=== PATIENT | male | born 1985 | race Two or more races ===

== ENCOUNTER → 2016-09-20 | Emergency (ER) | payer OTHER | END | disposition left against medical advice (07) | LOC: ER 15:45 | DX: R10.9 Unspecified abdominal pain (principal); Z53.21 Procedure and treatment not carried out due to patient leaving prior to being seen by health care provider ==

== ENCOUNTER 2016-09-21 12:45 | Emergency (ER) | payer SELFPAY ==
[~2016-09-21] VITALS: Ht 177.8 cm; Wt 86.2 kg
[2016-09-21 13:51] LABS: Basophils # (auto) 0 uL; Basophils % (auto) 0.1 % (0.0-2.0); DEFINITIVE VIEW TRANSMISSION; Eosinophils % (auto) 12.8 % (0.0-7.0); Hematocrit 46.7 % (41.0-53.0); Lymphocytes # (auto) 2.5 uL; Lymphocytes % (auto) 32.7 % (10.0-50.0); Mean Corpuscular Hemoglobin 32.1 pg (28.0-32.0); Mean Corpuscular Hgb Conc. 34.2 g/dL (32.0-36.0); Mean Corpuscular Volume 93.9 fL (80.0-100.0); Mean Platelet Volume 7.6 fL (7.4-10.4); Monocytes # (auto) 0.6 uL; Monocytes % (auto) 8.6 % (0.0-12.0); Neutrophils # (auto) 3.5 uL; Neutrophils % (auto) 45.8 % (37.0-80.0); Platelet Count (auto) 253 10^3/uL (140-450); Red Cell Distribution Width 13.8 % (11.6-16.0); White Blood Cell 7.6 10^3/uL (4.4-10.8)
[2016-09-21 14:18] LABS: Albumin 3.3 g/dL (3.4-5.0); BUN/Creatinine Ratio 6.8; Calcium 8.7 mg/dL (8.5-10.1); Potassium 3.9 mmol/L (3.5-5.1)
[2016-09-21 14:20] LABS: Bilirubin, Total 0.3 mg/dL (0.2-1.0)
[2016-09-21 16:23] VITALS: BP 125/79
[2016-09-21] MEDS ORDERED: PANTOPRAZOLE 40 MG TAB PO ONE (17:00)
== END 2016-09-21 18:16 | disposition home or self-care (01) ==
LOC: ER 12:45
DX: K29.70 Gastritis, unspecified, without bleeding (principal); Z90.49 Acquired absence of other specified parts of digestive tract
CPT/HCPCS: 36415; 74176; 80053; 83690; 85025

== ENCOUNTER 2017-01-13 11:56 | Inpatient (IN) | payer MEDICAID ==
[~2017-01-13] VITALS: Ht 175.3 cm; Wt 89.0 kg
[2017-01-13 13:09] LABS: Basophils # (auto) 0 uL; Basophils % (auto) 0.3 % (0.0-2.0); Eosinophils # (auto) 0.3 uL; Eosinophils % (auto) 2.9 % (0.0-7.0); Hematocrit 53.6 % (41.0-53.0); Hemoglobin 18.3 g/dL (13.5-17.5); Lymphocytes # (auto) 1.7 uL; Lymphocytes % (auto) 16.2 % (10.0-50.0); Mean Corpuscular Hemoglobin 32.5 pg (28.0-32.0); Mean Corpuscular Hgb Conc. 34.2 g/dL (32.0-36.0); Mean Platelet Volume 7.3 fL (6.9-10.8); Monocytes # (auto) 0.8 uL; Monocytes % (auto) 7.4 % (0.0-12.0); Neutrophils # (auto) 7.5 uL; Neutrophils % (auto) 73.2 % (37.0-80.0); Nucleated Red Blood Cells % 0.1 %; Platelet Count (auto) 254 10^3/uL (140-450); Red Cell Distribution Width 13.5 % (11.8-14.3); White Blood Cell 10.2 10^3/uL (4.4-10.8)
[2017-01-13] MEDS ORDERED: ONDANSETRON HCL 4 MG/2 ML VIAL IV ONE (13:15)
[2017-01-13] MEDS ORDERED: MORPHINE SULF INJ 2 MG/ML SYRINGE 1ML IV ONE (13:15)
[2017-01-13] MEDS ORDERED: PANTOPRAZOLE 40 MG/10 ML VIAL IV STA (13:15)
[2017-01-13] MEDS ORDERED: SODIUM CHLORIDE 0.9% 1,000 ML IVB ONE (13:15)
[2017-01-13 13:20] LABS: Albumin 3.5 g/dL (3.4-5.0); BUN/Creatinine Ratio 8.6; Calcium 8.5 mg/dL (8.5-10.1); Potassium 4.1 mmol/L (3.5-5.1)
[2017-01-13 13:23] LABS: Bilirubin, Total 0.6 mg/dL (0.2-1.0); Total Protein 7.2 g/dL (6.4-8.2)
[2017-01-13] MEDS ORDERED: cefTRIAXone 1GM/50ML D5W 50 ML IV ONE (16:45)
[2017-01-13] MEDS ORDERED: ACETAMINOPHEN 500 MG TAB PO PRN (16:45)
[2017-01-13] MEDS ORDERED: LORazepam 0.5 MG TAB PO PRN (16:45)
[2017-01-13] MEDS ORDERED: TEMAZEPAM 15 MG CAP PO PRN (16:45)
[2017-01-13] MEDS ORDERED: HYDROcodone-ACET 5/325MG TAB PO PRN (16:45)
[2017-01-13] MEDS: PROMETHAZINE HCL 25 MG/ML 1ML IV PRN ×2 (18:40→22:49)
[2017-01-13] MEDS: MORPHINE SULF INJ 2 MG/ML SYRINGE 1ML IV PRN ×2 (18:41→22:49)
[2017-01-13] MEDS: FAMOTIDINE (10MG/ML) 2ML VL IV SCH (18:41)
[2017-01-13] MEDS: SODIUM CHLORIDE 0.9% 1,000 ML IV SCH (18:42)
[2017-01-13 22:00] VITALS: BP 144/78
[2017-01-14] MEDS: SODIUM CHLORIDE 0.9% 1,000 ML IV SCH ×3 (03:11→22:44)
[2017-01-14 05:00] VITALS: BP 141/98
[2017-01-14] MEDS: FAMOTIDINE (10MG/ML) 2ML VL IV SCH (05:05)
[2017-01-14] MEDS: PROMETHAZINE HCL 25 MG/ML 1ML IV PRN ×4 (05:05→22:49)
[2017-01-14] MEDS: MORPHINE SULF INJ 2 MG/ML SYRINGE 1ML IV PRN ×4 (05:06→22:50)
[2017-01-14 06:50] LABS: Cholesterol 133 mg/dL (< 200); HDL Cholesterol 18 mg/dL (40-59); LDL Cholesterol 113 mg/dL (< 100); Triglycerides 98 mg/dL (< 150)
[2017-01-14] MEDS: cefTRIAXone 1GM/50ML D5W 50 ML IV SCH (08:18)
[2017-01-14 10:04] VITALS: BP 130/70
[2017-01-14 13:00] VITALS: BP 147/78
[2017-01-14] MEDS ORDERED: SODIUM CHLORIDE LOCK 10 ML ONE (13:55)
[2017-01-14] MEDS ORDERED: LIDOCAINE VISCOUS 2% 15ML UD ONE (13:55)
[2017-01-14] MEDS ORDERED: diphenhdrAMINE HCL 50 MG/1 ML VL ONE (13:55)
[2017-01-14 14:29] LABS: INR 1.07 (0.9-1.15); Prothrombin Time 11.7 sec (9.37-12.3)
[2017-01-14] MEDS: MIDAZOLAM HCL 5 MG/ML-1ML VIAL ONE ×2 (14:35→14:38)
[2017-01-14] MEDS: fentaNYL CITRATE 100 MCG/2 ML VL ONE ×2 (14:35→14:38)
[2017-01-14] MEDS ORDERED: IOHEXOL 300 MG/ML 100ML BOTTLE IJ ONE (14:57)
[2017-01-14 17:00] VITALS: BP 125/66
[2017-01-14 20:00] VITALS: BP 137/79
[2017-01-14 22:00] VITALS: BP 137/79
[2017-01-14] MEDS: PANTOPRAZOLE 40 MG TAB PO SCH (22:12)
[2017-01-15] MEDS: MORPHINE SULF INJ 2 MG/ML SYRINGE 1ML IV PRN ×3 (02:50→11:06)
[2017-01-15] MEDS: PROMETHAZINE HCL 25 MG/ML 1ML IV PRN ×2 (02:50→06:47)
[2017-01-15 05:25] VITALS: BP 137/69
[2017-01-15 07:36] VITALS: BP 135/67
[2017-01-15] MEDS: cefTRIAXone 1GM/50ML D5W 50 ML IV SCH (08:24)
[2017-01-15 08:32] LABS: Urine Bilirubin Negative (Negative); Urine Blood Negative /uL (Negative); Urine Color Yellow (Yellow); Urine Glucose Normal (Normal); Urine Ketone TRACE (Negative); Urine Nitrite Negative (Negative); Urine RBC <1 /hpf (0 - 3); Urine Urobilinogen Normal (Negative); Urine pH 7.5 (5.0-8.0)
[2017-01-15] MEDS: PANTOPRAZOLE 40 MG TAB PO SCH (11:05)
[2017-01-15 11:53] VITALS: BP 138/73
[2017-01-15] MEDS: SODIUM CHLORIDE 0.9% 1,000 ML IV SCH (12:50)
[2017-01-15 13:46] VITALS: BP 138/73
== END 2017-01-15 14:20 | disposition home or self-care (01) | DRG 241 ==
LOC: ER 11:56 → OVERFLOW 11:57 → CENTRAL 17:56
PROVIDERS: ADMIT Internal Medicine; ATTEND Internal Medicine
PROC: 0DJ08ZZ Inspection of Upper Intestinal Tract, Via Natural or Artificial Opening Endoscopic (ICD-10-PCS; principal; 2017-01-14 14:33)
DX: K29.70 Gastritis, unspecified, without bleeding (principal); K20.9 Esophagitis, unspecified; F41.9 Anxiety disorder, unspecified; K29.80 Duodenitis without bleeding; F17.200 Nicotine dependence, unspecified, uncomplicated; K82.4 Cholesterolosis of gallbladder; G47.00 Insomnia, unspecified; Z90.49 Acquired absence of other specified parts of digestive tract
CPT/HCPCS: 36415; 43235; 71010; 74177; 76705; 78226; 80053; 80061; 80307; 81001; 82150; 83690; 85025; 85610; 85652; 86141; 94761; 96361; 96374; 96375; C9113; J0696; J2250; J2405; J3490

== ENCOUNTER → 2017-02-14 | Outpatient (CLI) | payer MEDICAID | END | disposition home or self-care (01) | LOC: LAB 14:57 | PROVIDERS: ATTEND Surgery | DX: R35.0 Frequency of micturition (principal) ==

== ENCOUNTER 2017-10-25 17:58 | Inpatient (IN) | payer MEDICAID ==
[~2017-10-25] VITALS: Ht 177.8 cm; Wt 92.3 kg
[2017-10-25] MEDS ORDERED: SODIUM CHLORIDE 0.9% 500 ML IVB ONE (18:33)
[2017-10-25] MEDS ORDERED: PANTOPRAZOLE 40 MG/10 ML VIAL IV STA (18:33)
[2017-10-25] MEDS ORDERED: ONDANSETRON HCL 4 MG/2 ML VIAL IV ONE (18:45)
[2017-10-25] MEDS ORDERED: MORPHINE SULFATE 4 MG/ML SYR/VIAL IV ONE (18:45)
[2017-10-25 19:03] LABS: Basophils # (auto) 0 uL; Basophils % (auto) 0.1 % (0.0-2.0); Eosinophils # (auto) 0.1 uL; Eosinophils % (auto) 1.1 % (0.0-7.0); Lymphocytes # (auto) 2.1 uL; Lymphocytes % (auto) 21.7 % (10.0-50.0); Mean Corpuscular Hemoglobin 33.6 pg (28.0-32.0); Mean Corpuscular Hgb Conc. 34.9 g/dL (32.0-36.0); Mean Corpuscular Volume 96.4 fL (80.0-100.0); Monocytes # (auto) 0.9 uL; Monocytes % (auto) 9.2 % (0.0-12.0); Neutrophils # (auto) 6.5 uL; Neutrophils % (auto) 67.9 % (37.0-80.0); Nucleated Red Blood Cells % 0.1 %; Platelet Count (auto) 243 10^3/uL (140-450); Red Blood Cells 5.96 10^6/uL (4.5-5.90); Red Cell Distribution Width 12.7 % (11.8-14.3); White Blood Cell 9.5 10^3/uL (4.4-10.8)
[2017-10-25 19:04] LABS: Hematocrit 57.4 % (41.0-53.0)
[2017-10-25 19:23] LABS: Albumin 3.8 g/dL (3.4-5.0); BUN/Creatinine Ratio 7.8; Bilirubin, Total 0.5 mg/dL (0.2-1.0); Potassium 4.1 mmol/L (3.5-5.1); Total Protein 7.8 g/dL (6.4-8.2)
[2017-10-25 22:22] LABS: Urine Bacteria NONE SEEN /hpf (None Seen); Urine Blood Negative /uL (Negative); Urine Mucus FEW (None Seen); Urine Specific Gravity 1.023 (1.001-1.035); Urine WBC <1 /hpf (0 - 3)
[2017-10-25] MEDS ORDERED: ACETAMINOPHEN 500 MG TAB PO PRN (23:00)
[2017-10-25] MEDS: SODIUM CHLORIDE 0.9% 1,000 ML IV SCH (23:00)
[2017-10-25] MEDS ORDERED: HYDROcodone-ACET 5/325MG TAB PO PRN (23:00)
[2017-10-26 01:10] VITALS: BP 121/70
[2017-10-26] MEDS: MORPHINE SULF INJ 2 MG/ML SYRINGE 1ML IV PRN ×5 (01:44→20:03)
[2017-10-26] MEDS: ONDANSETRON HCL 4 MG/2 ML VIAL IV PRN ×3 (01:53→20:03)
[2017-10-26] MEDS ORDERED: LEVO50TA7 PO (04:34)
[2017-10-26 06:32] LABS: Basophils # (auto) 0 uL; Eosinophils # (auto) 0.1 uL; Eosinophils % (auto) 1.6 % (0.0-7.0); Lymphocytes # (auto) 2.1 uL; Mean Corpuscular Hgb Conc. 35.1 g/dL (32.0-36.0); Neutrophils % (auto) 60.4 % (37.0-80.0); Nucleated Red Blood Cells % 0.2 %; Red Blood Cells 5.58 10^6/uL (4.5-5.90)
[2017-10-26 06:34] LABS: Basophils % (auto) 0.2 % (0.0-2.0); Hematocrit 53.8 % (41.0-53.0); Hemoglobin 18.9 g/dL (13.5-17.5); Lymphocytes % (auto) 26.5 % (10.0-50.0); Mean Corpuscular Hemoglobin 33.8 pg (28.0-32.0); Mean Corpuscular Volume 96.3 fL (80.0-100.0); Monocytes # (auto) 0.9 uL; Monocytes % (auto) 11.3 % (0.0-12.0); Neutrophils # (auto) 4.8 uL; Platelet Count (auto) 231 10^3/uL (140-450); Red Cell Distribution Width 12.6 % (11.8-14.3)
[2017-10-26 06:47] LABS: BUN/Creatinine Ratio 8.5; Calcium 8.1 mg/dL (8.5-10.1); Potassium 3.9 mmol/L (3.5-5.1)
[2017-10-26 09:00] VITALS: BP 127/77
[2017-10-26] MEDS: SODIUM CHLORIDE 0.9% 1,000 ML IV SCH ×2 (12:20→23:29)
[2017-10-26 13:06] VITALS: BP 126/72
[2017-10-26 15:09] LABS: INR 1.05 (0.9-1.15); Prothrombin Time 11.2 sec (9.27-12.13)
[2017-10-26 17:00] VITALS: BP 119/63
[2017-10-26 17:35] LABS: INR 1.04 (0.9-1.15); Partial Thromboplastin Time 29.4 sec (23.78-33.04); Prothrombin Time 11.1 sec (9.27-12.13)
[2017-10-26 22:59] VITALS: BP 119/49
[2017-10-27] MEDS: MORPHINE SULF INJ 2 MG/ML SYRINGE 1ML IV PRN ×6 (00:45→18:48)
[2017-10-27 05:29] VITALS: BP 114/65
[2017-10-27 06:07] LABS: Basophils # (auto) 0 uL; Hemoglobin 19.7 g/dL (13.5-17.5); Lymphocytes # (auto) 1.7 uL; Monocytes # (auto) 0.7 uL
[2017-10-27 06:10] LABS: Basophils % (auto) 0.1 % (0.0-2.0); Eosinophils # (auto) 0.1 uL; Lymphocytes % (auto) 23.4 % (10.0-50.0); Mean Corpuscular Hemoglobin 33.7 pg (28.0-32.0); Mean Corpuscular Hgb Conc. 34.9 g/dL (32.0-36.0); Mean Corpuscular Volume 96.8 fL (80.0-100.0); Monocytes % (auto) 10.4 % (0.0-12.0); Neutrophils # (auto) 4.6 uL; Neutrophils % (auto) 64.1 % (37.0-80.0); Nucleated Red Blood Cells % 0.2 %; Platelet Count (auto) 224 10^3/uL (140-450); Red Blood Cells 5.85 10^6/uL (4.5-5.90); Red Cell Distribution Width 12.7 % (11.8-14.3); White Blood Cell 7.1 10^3/uL (4.4-10.8)
[2017-10-27 06:29] LABS: Hematocrit 56.6 % (41.0-53.0)
[2017-10-27 06:42] LABS: Albumin 3.3 g/dL (3.4-5.0); Calcium 8.6 mg/dL (8.5-10.1); Potassium 4.7 mmol/L (3.5-5.1)
[2017-10-27 06:47] LABS: BUN/Creatinine Ratio 6.8; Bilirubin, Total 0.4 mg/dL (0.2-1.0); Total Protein 6.9 g/dL (6.4-8.2)
[2017-10-27] MEDS ORDERED: ceFAZolin 1GM/50ML 50 ML IV ONE (08:21)
[2017-10-27] MEDS ORDERED: MIDAZOLAM HCL 1MG/1ML-2 ML VIAL ONE (08:44)
[2017-10-27] MEDS ORDERED: ROCURONIUM 10MG/ML 10ML VIAL IV ONE (08:44)
[2017-10-27] MEDS ORDERED: fentaNYL CITRATE 5 ML ONE (08:44)
[2017-10-27] MEDS ORDERED: PROPOFOL 10 MG/ML 20 ML IV ONE (08:46)
[2017-10-27 09:00] VITALS: BP 123/64
[2017-10-27] MEDS ORDERED: ONDANSETRON HCL 4 MG/2 ML VIAL IV ONE (10:00)
[2017-10-27] MEDS ORDERED: hydrALAZINE HCL 20 MG/ML VL IV PRN (10:00)
[2017-10-27] MEDS ORDERED: ePHEDrine SULFATE 50 MG/ML AMP IV PRN (10:00)
[2017-10-27 13:00] VITALS: BP 138/67
[2017-10-27] MEDS: ONDANSETRON HCL 4 MG/2 ML VIAL IV PRN (13:54)
[2017-10-27] MEDS: SODIUM CHLORIDE 0.9% 1,000 ML IV SCH (15:00)
[2017-10-27 17:00] VITALS: BP 130/64
[2017-10-27 22:00] VITALS: BP 121/67
[2017-10-28] MEDS: MORPHINE SULF INJ 2 MG/ML SYRINGE 1ML IV PRN ×3 (01:36→19:00)
[2017-10-28 04:53] VITALS: BP 111/52
[2017-10-28 05:32] LABS: Basophils # (auto) 0 uL
[2017-10-28 05:34] LABS: Basophils % (auto) 0.4 % (0.0-2.0); Eosinophils # (auto) 0.2 uL; Eosinophils % (auto) 2.5 % (0.0-7.0); Hematocrit 53.1 % (41.0-53.0); Lymphocytes # (auto) 2.1 uL; Lymphocytes % (auto) 22.6 % (10.0-50.0); Mean Corpuscular Hemoglobin 34.1 pg (28.0-32.0); Mean Corpuscular Hgb Conc. 35.8 g/dL (32.0-36.0); Mean Corpuscular Volume 95.2 fL (80.0-100.0); Monocytes % (auto) 10.8 % (0.0-12.0); Neutrophils # (auto) 5.9 uL; Neutrophils % (auto) 63.7 % (37.0-80.0); Nucleated Red Blood Cells % 0.5 %; Platelet Count (auto) 238 10^3/uL (140-450); Red Blood Cells 5.58 10^6/uL (4.5-5.90); Red Cell Distribution Width 12.7 % (11.8-14.3); White Blood Cell 9.2 10^3/uL (4.4-10.8)
[2017-10-28 05:44] LABS: Albumin 3.1 g/dL (3.4-5.0); Calcium 8.2 mg/dL (8.5-10.1); Potassium 3.9 mmol/L (3.5-5.1)
[2017-10-28 05:51] LABS: BUN/Creatinine Ratio 5.6; Total Protein 6.4 g/dL (6.4-8.2)
[2017-10-28 05:57] LABS: Bilirubin, Total 0.9 mg/dL (0.2-1.0)
[2017-10-28] MEDS: SODIUM CHLORIDE 0.9% 1,000 ML IV SCH ×2 (06:28→10:14)
[2017-10-28 08:00] VITALS: BP 126/69
[2017-10-28 09:00] VITALS: BP 126/69
[2017-10-28 13:00] VITALS: BP 124/64
[2017-10-28 17:00] VITALS: BP 116/48
[2017-10-28 22:00] VITALS: BP 106/55
[2017-10-29] MEDS: MORPHINE SULF INJ 2 MG/ML SYRINGE 1ML IV PRN (01:10)
[2017-10-29] MEDS: SODIUM CHLORIDE 0.9% 1,000 ML IV SCH (02:40)
[2017-10-29 05:03] VITALS: BP 98/57
[2017-10-29 06:07] LABS: Basophils # (auto) 0 uL; Eosinophils # (auto) 0.4 uL; Mean Corpuscular Volume 96.2 fL (80.0-100.0); Neutrophils # (auto) 5.3 uL; Nucleated Red Blood Cells % 0.1 %; White Blood Cell 8.8 10^3/uL (4.4-10.8)
[2017-10-29 06:13] LABS: Basophils % (auto) 0.2 % (0.0-2.0); Eosinophils % (auto) 4.4 % (0.0-7.0); Hematocrit 54.4 % (41.0-53.0); Lymphocytes % (auto) 22.8 % (10.0-50.0); Mean Corpuscular Hemoglobin 33.5 pg (28.0-32.0); Mean Corpuscular Hgb Conc. 34.9 g/dL (32.0-36.0); Neutrophils % (auto) 60.6 % (37.0-80.0); Platelet Count (auto) 229 10^3/uL (140-450); Red Blood Cells 5.66 10^6/uL (4.5-5.90); Red Cell Distribution Width 12.6 % (11.8-14.3)
[2017-10-29 07:45] VITALS: BP 110/60
[2017-10-29 08:00] VITALS: BP 110/60
[2017-10-29 11:15] VITALS: BP 110/60
== END 2017-10-29 12:35 | disposition home or self-care (01) | DRG 263 ==
LOC: ER 18:01 → OVERFLOW 18:02 → EAST 10-26 01:10
PROVIDERS: ADMIT Nurse Practitioner Family; ATTEND Internal Medicine
PROC: 0FT44ZZ Resection of Gallbladder, Percutaneous Endoscopic Approach (ICD-10-PCS; principal; 2017-10-27 08:40)
DX: K82.4 Cholesterolosis of gallbladder (principal); E03.9 Hypothyroidism, unspecified; Z87.11 Personal history of peptic ulcer disease
CPT/HCPCS: 36415; 71045; 76705; 80048; 80053; 81001; 82150; 82247; 83690; 83735; 85025; 85610; 85730; 86850; 86900; 86901; 94761; 96361; 96374; 96375; 96376; C9113; J0690; J2250; J2405; J2704

== ENCOUNTER 2017-10-31 09:31 | Emergency (ER) | payer MEDICAID ==
[~2017-10-31] VITALS: Ht 177.8 cm; Wt 92.1 kg
[~2017-10-31 09:31] MED LIST: LEVO50TA7 PO
[2017-10-31 09:42] VITALS: BP 142/86
== END 2017-10-31 10:20 | disposition left against medical advice (07) ==
LOC: ER 09:31
DX: Z48.01 Encounter for change or removal of surgical wound dressing (principal); Z90.49 Acquired absence of other specified parts of digestive tract; Z87.11 Personal history of peptic ulcer disease

== ENCOUNTER 2019-06-11 20:44 | Emergency (ER) | payer MEDICAID ==
[~2019-06-11] VITALS: Ht 180.3 cm; Wt 90.7 kg
[2019-06-11 21:17] VITALS: BP 127/67
[2019-06-11 22:20] LABS: Basophils # (auto) 0 uL; Basophils % (auto) 0.4 % (0.0-2.0); Eosinophils # (auto) 0.1 uL; Hematocrit 48.5 % (41.0-53.0); Hemoglobin 16.8 g/dL (13.5-17.5); Lymphocytes # (auto) 1.9 uL; Lymphocytes % (auto) 19.5 % (10.0-50.0); Mean Corpuscular Hemoglobin 33.5 pg (28.0-32.0); Mean Corpuscular Hgb Conc. 34.7 g/dL (32.0-36.0); Mean Corpuscular Volume 96.7 fL (80.0-100.0); Monocytes # (auto) 0.8 uL; Monocytes % (auto) 8.3 % (0.0-12.0); Neutrophils % (auto) 70.8 % (37.0-80.0); Nucleated Red Blood Cells % 0.1 %; Platelet Count (auto) 238 10^3/uL (140-450); Red Blood Cells 5.01 10^6/uL (4.5-5.90); White Blood Cell 9.9 10^3/uL (4.4-10.8)
[2019-06-11 22:40] LABS: Albumin 3.8 g/dL (3.4-5.0); Calcium 8.7 mg/dL (8.5-10.1); Potassium 4.2 mmol/L (3.5-5.1)
[2019-06-11 22:43] LABS: BUN/Creatinine Ratio 8.2; Bilirubin, Total 0.7 mg/dL (0.2-1.0); Total Protein 7.1 g/dL (6.4-8.2)
[2019-06-11] MEDS ORDERED: LIDOCAINE VISCOUS 2% 15ML UD PO ONE (23:45)
[2019-06-11] MEDS ORDERED: ONDANSETRON ODT 4 MG TAB PO ONE (23:45)
[2019-06-11] MEDS ORDERED: ALUM & MAG HYDROX-SIMETH LIQ(MAALOX) 30 ML PO ONE (23:45)
[2019-06-11] MEDS ORDERED: DONNATAL 5ml ORAL Elix (BELLADONNA ALK-PHENOBARB) PO ONE (23:45)
[2019-06-11] MEDS ORDERED: LIDOCAINE VISCOUS 2% 15ML UD ONE (23:50)
[2019-06-11] MEDS ORDERED: ALUM & MAG HYDROX-SIMETH LIQ(MAALOX) 30 ML ONE (23:50)
== END 2019-06-12 00:19 | disposition home or self-care (01) ==
LOC: ER 20:50
DX: K29.70 Gastritis, unspecified, without bleeding (principal); Z90.49 Acquired absence of other specified parts of digestive tract; Z87.11 Personal history of peptic ulcer disease
CPT/HCPCS: 36415; 74176; 80053; 83690; 85025; 99284; Q0162

== ENCOUNTER 2019-06-12 16:54 | Emergency (ER) | payer MEDICAID ==
[~2019-06-12] VITALS: Ht 180.3 cm; Wt 90.7 kg
[2019-06-12 18:02] LABS: Urine WBC None Seen /hpf (0 - 3)
[2019-06-12 18:15] LABS: Urine Bacteria NONE SEEN /hpf (None Seen); Urine Blood Negative /uL (Negative); Urine Mucus FEW (None Seen); Urine Specific Gravity 1.013 (1.001-1.035)
[2019-06-12] MEDS ORDERED: PANTOPRAZOLE 40 MG TAB PO ONE (19:00)
[2019-06-12 19:53] VITALS: BP 129/80
== END 2019-06-12 19:55 | disposition home or self-care (01) ==
LOC: ER 16:54
DX: R10.84 Generalized abdominal pain (principal); R11.2 Nausea with vomiting, unspecified; E07.9 Disorder of thyroid, unspecified
CPT/HCPCS: 81001